=== PATIENT | male | born 1960 | race Caucasian/White ===

== ENCOUNTER 2022-08-23 15:24 | Inpatient (IN) | payer BC, OTHER ==
[~2022-08-23] VITALS: Ht 190.5 cm; Wt 138.4 kg
[2022-08-23 16:31] LABS: Basophils # (auto) 0.2 10 ^3/uL (0-0.2); Basophils % (auto) 1.6 % (0.0-2.0); Eosinophils # (auto) 0 10 ^3/uL (0-0.8); Eosinophils % (auto) 0.3 % (0.0-7.0); Hematocrit 46.7 % (41.0-53.0); Hemoglobin 15.5 g/dL (13.5-17.5); Lymphocytes # (auto) 1.3 10 ^3/uL (0.4-5.4); Lymphocytes % (auto) 12.3 % (10.0-50.0); Mean Corpuscular Hemoglobin 32.8 pg (28.0-32.0); Mean Corpuscular Hgb Conc. 33.3 g/dL (32.0-36.0); Mean Corpuscular Volume 98.7 fL (80.0-100.0); Monocytes % (auto) 9.1 % (0.0-12.0); Neutrophils # (auto) 8.4 10 ^3/uL (1.6-8.6); Neutrophils % (auto) 76.7 % (37.0-80.0); Nucleated Red Blood Cells % 0.1 %; Red Blood Cells 4.73 10^6/uL (4.5-5.90)
[2022-08-23 16:44] LABS: Albumin 3.5 g/dL (3.4-5.0); Calcium 9.1 mg/dL (8.5-10.1); Magnesium 2.4 mg/dL (1.6-2.6); Potassium 4.8 mmol/L (3.5-5.1)
[2022-08-23 16:49] LABS: BUN/Creatinine Ratio 23.5 (10.0-20.0); Bilirubin, Total 0.8 mg/dL (0.2-1.0); Total Protein 6.5 g/dL (6.4-8.2)
[2022-08-23] MEDS ORDERED: MORPHINE SULFATE INJ 2 MG/ml SYRG IV PRN (18:30)
[2022-08-23] MEDS ORDERED: NITROGLYCERIN 0.4 MG SL TAB SL PRN (18:30)
[2022-08-23] MEDS ORDERED: ACETAMINOPHEN 325 MG TAB PO PRN (18:30)
[2022-08-23] MEDS ORDERED: ALBUTEROL SULF 2.5 MG/0.5ML(0.5%) NEB SOLN NEB PRN (18:30)
[2022-08-23] MEDS ORDERED: CIPR750T3 PO (18:35)
[2022-08-23] MEDS ORDERED: MET50T PO (18:35)
[2022-08-23] MEDS ORDERED: DICL1GEL50 TOP (18:35)
[2022-08-23] MEDS ORDERED: IBUP800T26 PO (18:35)
[2022-08-23] MEDS ORDERED: METF-869 PO (18:35)
[2022-08-23] MEDS ORDERED: METH4PAK3 PO (18:35)
[2022-08-23] MEDS ORDERED: LISI-716 PO (18:35)
[2022-08-23] MEDS ORDERED: CETI-120 PO (18:35)
[2022-08-23 19:00] LABS: Cholesterol 222 mg/dL (< 200); Triglycerides 406 mg/dL (< 150)
[2022-08-23 19:03] LABS: HDL Cholesterol 43 mg/dL (40-59)
[2022-08-23 19:45] VITALS: BP 99/69
[2022-08-23] MEDS: SODIUM CHLORIDE 0.9% 1,000 ML IV SCH (20:00)
[2022-08-23 21:22] LABS: Urine Bacteria NONE SEEN /hpf (None Seen); Urine Blood Negative /uL (Negative); Urine Hyaline Cast FEW /lpf (0 - 2); Urine WBC 1 /hpf (0 - 3)
[2022-08-23] MEDS: HEPARIN SODIUM (PORCINE) 5000 UNITS/ML 1ML VIAL SC SCH (21:32)
[2022-08-24 00:30] VITALS: BP 106/62
[2022-08-24 05:00] VITALS: BP 93/62
[2022-08-24] MEDS: HEPARIN SODIUM (PORCINE) 5000 UNITS/ML 1ML VIAL SC SCH ×3 (06:05→22:22)
[2022-08-24 06:13] LABS: Basophils # (auto) 0.1 10 ^3/uL (0-0.2); Eosinophils # (auto) 0.1 10 ^3/uL (0-0.8); Hematocrit 46.3 % (41.0-53.0); Hemoglobin 15.6 g/dL (13.5-17.5); Lymphocytes # (auto) 1.6 10 ^3/uL (0.4-5.4); Lymphocytes % (auto) 27.1 % (10.0-50.0); Mean Corpuscular Hemoglobin 33.4 pg (28.0-32.0); Mean Corpuscular Hgb Conc. 33.6 g/dL (32.0-36.0); Mean Corpuscular Volume 99.3 fL (80.0-100.0); Monocytes # (auto) 0.8 10 ^3/uL (0-1.3); Monocytes % (auto) 14.4 % (0.0-12.0); Neutrophils # (auto) 3.3 10 ^3/uL (1.6-8.6); Neutrophils % (auto) 56.5 % (37.0-80.0); Nucleated Red Blood Cells % 0.1 %; Red Blood Cells 4.66 10^6/uL (4.5-5.90); Red Cell Distribution Width 14.3 % (11.8-14.3); White Blood Cell 5.8 10^3/uL (4.4-10.8)
[2022-08-24 06:36] LABS: Albumin 3.4 g/dL (3.4-5.0); Calcium 9.6 mg/dL (8.5-10.1); Potassium 4.5 mmol/L (3.5-5.1)
[2022-08-24 06:39] LABS: BUN/Creatinine Ratio 24.3 (10.0-20.0); Total Protein 6.7 g/dL (6.4-8.2)
[2022-08-24 09:00] VITALS: BP 93/57
[2022-08-24] MEDS: SODIUM CHLORIDE 0.9% 1,000 ML IV SCH (11:10)
[2022-08-24 11:51] LABS: Protein, Urine 16.4 mg/dL (0.0-11.9)
[2022-08-24 18:59] LABS: Urine Bacteria NONE SEEN /hpf (None Seen); Urine Blood Negative /uL (Negative); Urine Specific Gravity 1.006 (1.001-1.035); Urine WBC 2 /hpf (0 - 3)
[2022-08-24 22:00] VITALS: BP 97/61
[2022-08-25] MEDS: SODIUM CHLORIDE 0.9% 1,000 ML IV SCH (01:49)
[2022-08-25 05:00] VITALS: BP_DIAS 72
[2022-08-25] MEDS: HEPARIN SODIUM (PORCINE) 5000 UNITS/ML 1ML VIAL SC SCH ×2 (05:42→14:00)
[2022-08-25 06:32] LABS: Potassium 4.3 mmol/L (3.5-5.1)
[2022-08-25 06:41] LABS: Calcium 9.6 mg/dL (8.5-10.1); Phosphorus 3.2 mg/dL (2.5-4.90); Uric Acid 8.4 mg/dL (3.5-7.2)
[2022-08-25 09:00] VITALS: BP 109/64
[2022-08-25] MEDS ORDERED: cefTRIAXone 1GM/50ML D5W 50 ML IV SCH (09:00)
[2022-08-25 13:00] VITALS: BP 101/75
== END 2022-08-25 15:40 | disposition home or self-care (01) | DRG 315 ==
LOC: ER 15:24 → EDBD 15:24 → TELE 18:34 → TELE-WESTW 23:59
PROVIDERS: ADMIT Nurse Practitioner Family; ATTEND Nurse Practitioner Family
DX: I95.9 Hypotension, unspecified (principal); N17.9 Acute kidney failure, unspecified; E66.01 Morbid (severe) obesity due to excess calories; F10.10 Alcohol abuse, uncomplicated; I12.9 Hypertensive chronic kidney disease with stage 1 through stage 4 chronic kidney disease, or unspecified chronic kidney disease; N18.31 Chronic kidney disease, stage 3a; Z68.38 Body mass index [BMI] 38.0-38.9, adult; Z90.49 Acquired absence of other specified parts of digestive tract; Z81.8 Family history of other mental and behavioral disorders; Z82.49 Family history of ischemic heart disease and other diseases of the circulatory system; Z80.3 Family history of malignant neoplasm of breast; Z71.41 Alcohol abuse counseling and surveillance of alcoholic; Y90.9 Presence of alcohol in blood, level not specified; Z20.822 Contact with and (suspected) exposure to COVID-19
CPT/HCPCS: 36415; 70551; 71250; 74176; 76775; 80048; 80053; 80061; 80320; 81001; 82306; 82570; 83036; 83605; 83735; 83880; 83930; 84100; 84156; 84300; 84443; 84484; 84550; 85025; 85379; 87040; 87426; 87804; 93005; 93306; 93886; 93970; G0378; J0696